=== PATIENT | male | born 1960 | race Caucasian/White ===

== ENCOUNTER 2019-09-22 06:53 | Day surgery (SDC) | payer BC ==
[~2019-09-22] VITALS: Ht 180.3 cm; Wt 67.1 kg
[~2019-09-22 06:53] MED LIST: KEFLEX500 MG PO; MUPIROCIN22 GM TOPICAL
[2019-09-22 07:28] LABS: HEMATOCRIT 34.2 % (42.0-54.0); HEMOGLOBIN 9.1 g/dL (13.5-17.5); MCH 23.6 pg (26.0-34.0); MCHC 26.6 g/dL (31.0-37.0); MCV 88.8 fL (80.0-100.0); MEAN PLATELET VOLUME 9.5 fL (7.4-10.4); PLATELET COUNT 135 10x3/uL (130-400); RBC 3.85 10x6/uL (4.20-6.10); WBC 9.5 10x3/uL (4.8-10.8)
[2019-09-22 07:43] LABS: ANION GAP 10.2 mmol/L (8-16); CALCIUM 9.6 mg/dL (8.5-10.1); CARBON DIOXIDE 28.8 mmol/L (21.0-32.0); CREATININE - SERUM 1.9 mg/dL (0.6-1.3)
[2019-09-22 07:58] LABS: EOSINOPHILS 1 % (0-7); HYPOCHROMASIA 2+; LYMPHOCYTES 49 % (15-50); MONOCYTES 19 % (2-11); NEUTROPHILS 14 % (40-80); PLATELET ESTIMATE NORMAL
[2019-09-22 09:08] VITALS: BP 149/89; Ht 180.3 cm; Wt 67.1 kg
[2019-09-22] MEDS ORDERED: ULTRAM50 MG PO (10:57)
--- NOTE | 2019-09-22 11:06 | NUR ---
OPA IN AIRWAY ON ADMIT
--- NOTE | 2019-09-22 12:45 | NUR ---
WALKS AROUND ROOM, NO DIZZINESS OR UNSTEADINESS. PIV DC'D WITH TIP INTACT. DRESSING IN PERSONAL CLOTHING
[2019-09-22 14:16] LABS: PATH REVIEW PERIPHERAL SMEAR REVIEWED
--- NOTE | 2019-10-04 13:37 | OP ---
PATIENT NAME: DMITRY GAN MEDICAL RECORD: [id number] :64 LOCATION:[facility] ADMISSION DATE: SURGEON: MICHAEL HUBER MD DATE OF OPERATION: 09/22/2019 PREOPERATIVE DIAGNOSES: 1. Cellulitis/abscess of the right forearm. 2. Tobacco dependence syndrome. POSTOPERATIVE DIAGNOSES: 1. Cellulitis/abscess of the right forearm. 2. Tobacco dependence syndrome. PROCEDURE: Incision and debridement with a sharp debridement of the right forearm abscess. SURGEON: Michael Huber MD REPORT OF PROCEDURE: The patient's right forearm was prepped and draped in sterile fashion. The patient had a large abscess indurated region present. There was a large scab over top of it, which was removed revealing a small amount of purulence. Cultures were taken times 2. We then extended this opening to make full length of the indurated lesion and when we did this, we were able to scoop out what appeared to be necrotic underlying fatty tissue. Once this tissue was removed. The overlying skin was noted to be very very weak. We went ahead and just excised the skin and out through the edges of the wound. The total wound was 4.2 cm x 2 cm. The tissue did not appear to extend past the fascia. We irrigated out the wound with peroxide and saline solution and then treated any bleeding sources with electrocautery. We packed the wound with saline-soaked gauze and covered with dry gauze and Kerlix. COMPLICATIONS: None. CONDITION: Stable. ANESTHESIA: General endotracheal. BLOOD LOSS: Minimal. TRANSINT:[id number] Voice Confirmation ID: [id number] DOCUMENT ID: [id number] MICHAEL HUBER MD at 1337 CC: RUBEN URRUTIA MD [id number] DICTATION DATE: 09/22/19 1104 [employer] STRATEGIST: 09/22/19 1129 [facility] 09/22/[address] [id number]
== END 2019-09-22 12:55 | disposition home or self-care (01) ==
LOC: D.OPS 06:53 → D.PAN 10:30 → D.OPS 11:00
PROVIDERS: ATTEND Surgery
DX: L03.113 Cellulitis of right upper limb (principal); L02.413 Cutaneous abscess of right upper limb; F17.290 Nicotine dependence, other tobacco product, uncomplicated